=== PATIENT | male | born 1985 | race Caucasian/White ===

== ENCOUNTER → 2022-08-10 | Outpatient (CLI) | payer OTHER ==
--- NOTE | 2022-08-11 14:10 | MR ---
EXAMINATION TYPE: MR liver wo/w con DATE OF EXAM: 08/10/2022 8:49 PM INDICATION: Patient age:Male; 37 years old; Reason for study: K76.9; PHH. Abnormal US/CT. COMPARISON: CT scan abdomen from 06/23/2022, ultrasound 07/19/2022. TECHNIQUE: Multiplanar multi-sequence imaging was performed without contrast. Post contrast imaging was performed. Post IV contrast subtraction images were also submitted for review. IV Contrast: 10 cc Gadavist FINDINGS: LOWER CHEST: Mild gynecomastia changes bilaterally. ABDOMEN Liver: No evidence for suspicious mass. Area seen on prior imaging most filter present with some tirso fact. Scattered of geographic areas of subtle signal dropout on chemical shift out of phase imaging c ompatible with geographic hepatic steatosis. Scattered subcentimeter high T2 signal probable cysts. Gallbladder and Bile ducts: Unremarkable. Pancreas: Unremarkable. Spleen: Unremarkable. Adrenal glands: Unremarkable. Kidneys: High T2 signal right renal cyst measuring 8 mm. Stomach and Bowel: Unremarkable as visualized. Peritoneum: No evidence of pneumoperitoneum or free fluid. Vasculature: There are 2 right renal arteries.. No aortic aneurysm. Musculoskeletal: The osseous structures appear intact. Lymph Nodes: No gross evidence for lymphadenopathy. Abdominal wall: Unremarkable. IMPRESSION: No evidence of abdominal mass. Liver lesion thought to represent artifact on prior ultrasound. There is some scattered areas of geographic hepatic steatosis present.
== END | disposition home or self-care (01) ==
LOC: RADMRIMAIN 20:00
PROVIDERS: ATTEND Surgery
DX: K76.0 Fatty (change of) liver, not elsewhere classified (principal)
CPT/HCPCS: 74183; A9585